=== PATIENT | male | born 1955 | race Hispanic/Latino ===

== ENCOUNTER → 2019-05-04 | Outpatient (CLI) | payer OTHER | END | disposition home or self-care (01) | LOC: EDUNIT# 04-21 14:30 → OIH 07:49 | PROVIDERS: ATTEND Internal Medicine Cardiovascular Disease | DX: Z13.6 Encounter for screening for cardiovascular disorders (principal) | CPT/HCPCS: 75571 ==

== ENCOUNTER → 2019-05-06 | Outpatient (CLI) | payer MEDICARE, OTHER | END | disposition home or self-care (01) | LOC: SHCH 13:10 | PROVIDERS: ATTEND Internal Medicine Cardiovascular Disease | DX: R07.9 Chest pain, unspecified (principal) | CPT/HCPCS: 93306 ==

== ENCOUNTER → 2019-05-18 | Outpatient (CLI) | payer OTHER ==
[~2019-05-18] VITALS: Ht 170.2 cm; Wt 95.7 kg
[2019-05-18] MEDS: REGADENOSON 0.4 MG/5 ML PF SYG IVP SCH (13:36)
== END | disposition home or self-care (01) ==
LOC: EDUNIT# 05-11 08:00 → SHCH 09:01
PROVIDERS: ATTEND Internal Medicine Cardiovascular Disease
DX: R07.9 Chest pain, unspecified (principal)
CPT/HCPCS: 78452; 93017; 96374; A9500 ×2; J2785

== ENCOUNTER 2019-07-28 08:25 | Day surgery (SDC) | payer OTHER ==
[2019-07-23 10:42] VITALS: BP 114/60
[2019-07-23 10:43] LABS: BASOPHILS % (AUTO) 0.7 % (0.0-5.0); EOSINOPHILS % (AUTO) 2.6 % (0.0-8.0); HEMATOCRIT 43.6 % (42-54); LYMPHOCYTES % (AUTO) 32.6 % (21.0-51.0); MEAN CORPUSCULAR HGB CONC 32.3 g/dL (32.0-36.0); MEAN CORPUSCULAR VOLUME 89.7 fL (79-99); MONOCYTES % (AUTO) 5.7 % (3.0-13.0); NEUTROPHILS % (AUTO) 58.1 % (40.0-77.0); PLATELET COUNT (AUTO) 223 K/uL (130-400); RED BLOOD CELL COUNT(AUTO) 4.86 MIL/uL (4.50-6.20); RED CELL DISTRIBUTION WIDTH 13.7 % (11.0-15.5); WHITE BLOOD COUNT (AUTO) 9.6 K/uL (4.8-10.8)
[2019-07-23 10:58] LABS: CREATININE 1.6 mg/dL (0.5-1.5); POTASSIUM 4.6 mmol/L (3.5-5.1)
[2019-07-23 11:01] LABS: INR 1.11 (0.85-1.15); PARTIAL THROMBOPLASTIN TIME 27.2 SEC (26.3-35.5); PROTHROMBIN TIME 11.6 SEC (9.6-11.6)
[2019-07-23 11:49] LABS: APPEARANCE,URINE Clear (CLEAR); BILIRUBIN,URINE Negative (NEGATIVE); COLOR,URINE Yellow (YELLOW); GLUCOSE, URINE (UA) Negative (NEGATIVE); KETONES,URINE Negative (NEGATIVE); LEUKOCYTE ESTERASE ,URINE Negative (NEGATIVE); NITRATE,URINE Negative (NEGATIVE); OCCULT BLOOD,URINE Negative (NEGATIVE); PROTEIN,URINE Trace mg/dL (NEGATIVE)
[2019-07-23 11:51] LABS: BACTERIA,URINE Rare /HPF (None Seen); RBC,URINE 0-1 /HPF (0-1); SQUAMOUS EPITHELIAL CELL,UR Rare /HPF (0-2); WBC,URINE 0-1 /HPF (0-1)
--- NOTE | 2019-07-24 14:15 | NUR ---
REPORTED ABNORMAL LABS REPORTED BUN 25, CREAT 1.6 TO KELLI ZAMARRIPA. RECEIVED ORDERS TO HYDRATE PATIENT AT 100CC/HR WHEN PATIENT ARRIVES FOR PROCEDURE AND REPEAT BMP IN AM OF PROCEDURE.
[2019-07-28] VITALS (9 sets, daily range): BP systolic 115–135; BP diastolic 66–79
[~2019-07-28] VITALS: Ht 172.7 cm; Wt 89.5 kg
[~2019-07-28 08:25] MED LIST: ALLO100T PO; ATOR10TA69 PO; BUSP10TA3 PO; CHOL500050 PO; CLOP75TA32 PO; CYANOCOBALAMIN PO; DIPH25TA20 PO; DOCU100T PO; DULO60CA64 PO; FISH1CAP20 PO; FOLIC ACID PO; GABA-529 PO; INSU100V12 SQ; LISI-617 PO; MECL-160 PO; METF-445 PO; METO25TA6 PO; MONT10TA24 PO; NITR0.4T50 SL; OMEP20TA25 PO; PRAZ2CAP2 PO; PRED20TA3 PO; RANI150T7 PO; TAMS-1 PO; TRAZ-187 PO; [UNRECOGNIZED DRUG - OTHER] PO
[2019-07-28] MEDS ORDERED: NITROGLYCERIN 5 MG/ML 10 ML VIAL IV ONE (10:20)
[2019-07-28] MEDS ORDERED: HEPARIN SODIUM 1000UNIT/ML 10ML VIAL ONE (10:20)
[2019-07-28] MEDS ORDERED: IOHEXOL 350 MG/ML 100ML INFUS..BTL IV ONE (10:20)
[2019-07-28] MEDS ORDERED: MIDAZOLAM HCL 1 MG/ML 2ML VIAL ONE ×2 (10:21→11:06)
[2019-07-28] MEDS ORDERED: LIDOCAINE HCL 2% 20ML ONE (10:21)
[2019-07-28] MEDS ORDERED: DiphenhydrAMINE HCL 50 MG/ML VIAL ONE (10:28)
[2019-07-28] MEDS ORDERED: METHYLPREDNISOLONE SOD SUCC 125MG/2ML VIAL ONE (10:28)
[2019-07-28] MEDS ORDERED: MEPERIDINE-PF 25 MG/ML SYG ONE (11:06)
[2019-07-28] MEDS ORDERED: SODIUM BICARB 50MEQ 50ML VIAL ONE (11:06)
[2019-07-28] MEDS ORDERED: IOHEXOL-350 50ML VIAL IV ONE (11:27)
[2019-07-28] MEDS ORDERED: SODIUM CHLORIDE 0.9% 1000ML 1,000 ML IV SCH (11:45)
[2019-07-28] MEDS ORDERED: GLUCAGON 1MG KIT 1 MG ML IM PRN (11:45)
[2019-07-28] MEDS ORDERED: DEXTROSE 50%-WATER 50 ML DISP.SYRIN IV PRN (11:45)
[2019-07-28] MEDS ORDERED: INSULIN HUMULIN R 100 UNIT/ML 3ML ONE (12:43)
--- NOTE | 2019-07-28 14:18 | NUR ---
REMOVED TRBAND ORDERD, 15CC TOTAL, PT TOLERATED WELL , NO CONCERNS, NO BLEEDING. VITALS STABLE Addendum: 07/28/19 at 1421 by LES ADAMS RN RN WRONG PATIENT
--- NOTE | 2019-07-28 15:00 | NUR ---
RECEIVED REPORT FROM LES ADAMS RN AT BEDSIDE. DRESSING TO RIGHT GROIN IS DRY/INTACT, AREA IS SOFT TO TOUCH, NO HEMATOMA NOTED.
--- NOTE | 2019-07-28 15:35 | NUR ---
DISCHARGE INSTRUCTIONS PROVIDED TO PATIENT AND PATIENT'S SPOUSE. INSTRUCTED ON FEMORAL SITE CARE AND ANGIOGRAM AFTERCARE, HANDOUTS PROVIDED AND FOLLOW UP APPOINTMENT PROVIDED. INSTRUCTED TO RESUME METFORMIN ON 07/29/19. PATIENT AND SPOUSE VERBALIZED UNDERSTANDING, ALL QUESTIONS/CONCERNS ADDRESSED.
--- NOTE | 2019-07-28 16:10 | NUR ---
PATIENT DISCHARGED FROM FACILITY VIA WHEELCHAIR BY CHET MCCOLLUM RN. PATIENT ASSISTED INTO PRIVATE VEHICLE DRIVEN BY SPOUSE,
[2019-07-28] MEDS ORDERED: INSULIN HUMULIN R 100 UNIT/ML 3ML SQ SCH (16:30)
== END 2019-07-28 16:10 | disposition home or self-care (01) ==
LOC: DAH 08:25
PROVIDERS: ATTEND Internal Medicine Cardiovascular Disease
DX: I25.10 Atherosclerotic heart disease of native coronary artery without angina pectoris (principal); I10 Essential (primary) hypertension; E11.9 Type 2 diabetes mellitus without complications; E78.00 Pure hypercholesterolemia, unspecified; Z88.8 Allergy status to other drugs, medicaments and biological substances; Z88.3 Allergy status to other anti-infective agents; Z98.890 Other specified postprocedural states; Z79.82 Long term (current) use of aspirin; Z72.89 Other problems related to lifestyle; Z79.4 Long term (current) use of insulin; Z79.899 Other long term (current) drug therapy; Z79.84 Long term (current) use of oral hypoglycemic drugs; Z87.891 Personal history of nicotine dependence; Z82.49 Family history of ischemic heart disease and other diseases of the circulatory system; Z83.3 Family history of diabetes mellitus; Z82.5 Family history of asthma and other chronic lower respiratory diseases; Z79.01 Long term (current) use of anticoagulants
CPT/HCPCS: 36415; 71045; 80048; 81001; 82948; 85025; 85610; 85730; 93005; 93458; A4215; A4216; A4221; A4222; A4223 ×2; A4606; A4663; C1760; C1769; C1894; J1200; J1644; J1815; J2175; J2250; J2930; J3490 ×3; Q9965; Q9967; 99156; 99157

== ENCOUNTER 2020-12-24 18:24 | Emergency (ER) | payer OTHER ==
[~2020-12-24] VITALS: Ht 170.2 cm; Wt 90.7 kg
[~2020-12-24 18:24] MED LIST changes: -LISI-617 PO; +LISI-809 PO; -MONT10TA24 PO; +MONT10TA32 PO
[2020-12-24] MEDS ORDERED: CEPHALEXIN 500 MG CAPSULE PO SCH (19:45)
[2020-12-24] MEDS ORDERED: TETANUS/DIPHTHERIA TOXOID [ADULT] 0.5 ML VIAL IM SCH (19:45)
[2020-12-24 21:04] VITALS: BP 121/82
== END 2020-12-24 22:57 ==
LOC: EDBD 18:24 → EDH 18:24 → EEVIPCON 18:24 → EDH 22:57
DX: S61.442A Puncture wound with foreign body of left hand, initial encounter (principal); S09.90XA Unspecified injury of head, initial encounter; M25.511 Pain in right shoulder; Z88.6 Allergy status to analgesic agent; Z91.041 Radiographic dye allergy status; Z79.52 Long term (current) use of systemic steroids; Z79.899 Other long term (current) drug therapy; W18.09XA Striking against other object with subsequent fall, initial encounter; Y93.89 Activity, other specified; Y92.89 Other specified places as the place of occurrence of the external cause; Y99.8 Other external cause status
CPT/HCPCS: 70450; 73130; 90471; 90714

== ENCOUNTER 2024-08-27 04:37 | Emergency (ER) | payer OTHER ==
[~2024-08-27] VITALS: Ht 175.3 cm; Wt 108.0 kg
[~2024-08-27 04:37] MED LIST changes: -LISI-809 PO; +LISI5TAB21 PO; -MECL-160 PO; +MECL-302 PO; +MONT-39 PO; -MONT10TA32 PO; +OMEP20TA20 PO; -OMEP20TA25 PO
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
[2024-08-27 05:49] VITALS: BP 115/88; PULSE 85; RESP 16; TEMP 98.2; O2SAT 98
== END 2024-08-27 05:58 | disposition home or self-care (01) ==
LOC: EDH 04:37
DX: N43.3 Hydrocele, unspecified (principal); N50.89 Other specified disorders of the male genital organs; F17.200 Nicotine dependence, unspecified, uncomplicated; Z79.02 Long term (current) use of antithrombotics/antiplatelets; Z79.52 Long term (current) use of systemic steroids; Z79.84 Long term (current) use of oral hypoglycemic drugs; Z79.899 Other long term (current) drug therapy; Z88.6 Allergy status to analgesic agent; Z88.8 Allergy status to other drugs, medicaments and biological substances; Z91.041 Radiographic dye allergy status; Z98.890 Other specified postprocedural states
CPT/HCPCS: 99282